=== PATIENT | female | born 1980 | race Asian ===

== ENCOUNTER 2018-07-18 07:54 | Emergency (ER) | payer SELFPAY, OTHER ==
[2018-07-18] MEDS: LIDOCAINE 1% (MPF) 5 ML VIAL INJ (08:25)
== END 2018-07-18 09:29 | disposition home or self-care (01) ==
LOC: FTE 07:54
DX: S61.012A Laceration without foreign body of left thumb without damage to nail, initial encounter (principal); W26.8XXA Contact with other sharp object(s), not elsewhere classified, initial encounter; Y92.9 Unspecified place or not applicable
CPT/HCPCS: 12002; 99283-25

== ENCOUNTER 2018-07-20 08:42 | Emergency (ER) | payer SELFPAY ==
[2018-07-20] MEDS: DIPHTH/TET/ACEL PERTUSS (ADULT) 0.5 ML VIAL IM* (09:33)
== END 2018-07-20 09:41 | disposition home or self-care (01) ==
LOC: FTE 08:42
DX: Z48.00 Encounter for change or removal of nonsurgical wound dressing (principal); Z23 Encounter for immunization
CPT/HCPCS: 90471; 90715; 99283-25

== ENCOUNTER 2018-07-27 08:41 | Emergency (ER) | payer SELFPAY | END 2018-07-27 09:25 | disposition home or self-care (01) | LOC: FTE 08:41 | DX: Z48.02 Encounter for removal of sutures (principal) | CPT/HCPCS: 99281 ==